=== PATIENT | male | born 1995 | race Hispanic/Latino ===

== ENCOUNTER 2019-03-11 13:37 | Emergency (ER) | payer OTHER ==
[2019-03-11 13:41] VITALS: BMI 22.2
--- NOTE | 2019-03-11 14:30 | ED PDOC ---
HPI: Chest Pain Time Seen by Provider: 03/11/19 13:54 Chief Complaint (Nursing): Palpitations Chief Complaint (Provider): palpitations History Per: Patient History/Exam Limitations: no limitations Additional Complaint(s): 23 y/o M with no significant PMH who presents with palpitations and lightheadedness. Pt states that he has been having intermittent episodes of heart fluttering over the past month that have progressed to occurring several times per day and last a few seconds. One week ago, had one episode of N/V and has felt "cloudy" and "not right" since. He saw his primary care doctor yesterday b/c of persistent symptoms and lightheadedness who performed an EKG that was unremarkable. He had blood work and awaits results but was advised to call 911 if symptoms recurred. Pt was doing well this morning when he suddenly began feeling his heart racing and pounding with associated dizziness and SOB with some chest pain. He called his friends as he felt like he would faint who called 911. Pt states that symptoms lasted for 45 minutes but have resolved. Continues to feel lightheaded. Denies N/V, diarrhea. Denies hx of thyroid disease, HTN, heart disease, family hx of arrhythmia. Continues to feel mildly SOB. Past Medical History Reviewed: Historical Data, Nursing Documentation, Vital Signs Vital Signs: Last Vital Signs Temp 98.8 F 03/11/19 13:40 Pulse 60 03/11/19 13:40 Resp 16 03/11/19 13:40 BP 133/82 03/11/19 13:40 Pulse Ox 100 03/11/19 13:40 - Medical History PMH: No Chronic Diseases - Family History Family History: States: Unknown Family Hx - Allergies Allergies/Adverse Reactions: Allergies Allergy/AdvReac Type Severity Reaction Status Date / Time No Known Allergies Allergy Verified 03/11/19 13:50 RACHEL Risk Score for UA/NSTEMI - RACHEL Risk Score Age > 64: NO 3 or more CAD Risk Factors: NO Known CAD (Stenosis greater than 50%): NO Aspirin use in past 7 days: NO Severe Angina: NO EKG ST changes greater than 0.5mm: NO Positive Cardiac Marker: NO RACHEL Score: 0 Risk %: 5% Wells Criteria for PE - Wells Criteria for Pulmonary Embolism Clinical Signs and Symptoms of DVT: No P.E is #1 Diagnosis, or Equally Likely: No Heart Rate >100: No Immobilization at least 3 days;Surgery previous 4 weeks: No Previous, objectively diagnosed PE or DVT: No Hemoptysis: No Malignancy w/treatment within 6 months, or palliative: No Total Score: 0 Review of Systems Constitutional: Negative for: Fever, Chills Cardiovascular: Positive for: Chest Pain, Palpitations, Light Headedness Respiratory: Negative for: Cough, Shortness of Breath Gastrointestinal: Negative for: Nausea, Vomiting Physical Exam - Reviewed Nursing Documentation Reviewed: Yes Vital Signs Reviewed: Yes - Physical Exam Appears: Positive for: No Acute Distress Skin: Positive for: Normal Color Eye Exam: Positive for: Normal appearance ENT: Positive for: Normal ENT Inspection Cardiovascular/Chest: Positive for: Regular Rate, Rhythm Respiratory: Positive for: Normal Breath Sounds Gastrointestinal/Abdominal: Positive for: Normal Exam Neurological/Psych: Positive for: Awake, Alert, Symmetric/Intact Strength, Oriented, Gait (steady), Cerebellar Tests (able to perform alternating finger to nose ). Negative for: Lethargic, Motor/Sensory Deficits - Laboratory Results Result Diagrams: 03/11/19 14:45 03/11/19 14:45 - ECG O2 Sat by Pulse Oximetry: 100 Medical Decision Making Medical Decision Making: CBC, CMP, TSH, Free T3 and T4 CXR PA and lateral Tele EKG BNP Trop D-dimer NS 1L IV x 1 EKG: sinus with sinus arrhythmia, HR 63, no arrhythmia noted, incomplete RBBB. CXR: no active disease (official read) Labs unremarkable. Pt had episode of recurrent palpitations with continued dizziness during ER visit but no arrhythmia noted on monitor. Repeat neuro exam remains unchanged. Telemetry showed sinus rhythm, HR 60s. Re-assessed prior to d/c home: states that his dizziness had resolved after 1L of normal saline. Ambulated to bathroom with steady gait. Stable for d/c home with return instructions given and advised to follow up with [facility] for possible Holter/event monitor. Patient and mother in agreement with plan. Disposition - Clinical Impression Clinical Impression: Palpitations - Patient ED Disposition Is Patient to be Admitted: No Counseled Patient/Family Regarding: Studies Performed, Diagnosis, Need For Followup - Disposition Referrals: Siddharth Shaffer MD [Staff Provider] - Disposition: Routine/Home Disposition Time: 18:54 Condition: STABLE Additional Instructions: Follow up with your primary care doctor for further evaluation of your symptoms. Return to ER if palpitations recur or your symptoms worsen. Instructions: Palpitations (DC) Forms: [facility] ([place]an) Print Language: SOUTH AFRICAN
[2019-03-11 14:50] LABS: BASO % 0.5 % (0.0-2.0); EOS % 0.3 % (0.0-4.0); HEMOGLOBIN 14.7 g/dL (12.0-18.0); LYMPH # 1.1 K/uL (1.0-4.3); LYMPH % 14.8 % (20.0-40.0); MEAN CORPUSCULAR HEMOGLOBIN 30.6 pg (27.0-31.0); MEAN PLATELET VOLUME 7.1 fl (7.2-11.7); MONO # 0.6 K/uL (0.0-0.8); MONO % 8.9 % (0.0-10.0); NEUT # 5.4 K/uL (1.8-7.0); NEUT % 75.5 % (50.0-75.0); RBC 4.81 Mil/uL (4.40-5.90); RED CELL DISTRIBUTION WIDTH 12.6 % (11.5-14.5); WHITE BLOOD COUNT 7.2 K/uL (4.8-10.8)
[2019-03-11 15:06] LABS: ALB/GLOB RATIO 1.5 (1.0-2.1); ALBUMIN 4.5 g/dL (3.5-5.0); ALT/SGPT 39 U/L (21-72); AST/SGOT 35 U/L (17-59); BLOOD UREA NITROGEN 21 mg/dl (9-20); CALCIUM 10.1 mg/dL (8.4-10.2); GFR NON-AFRICAN AMERICAN > 60
--- NOTE | 2019-03-11 15:12 | RAD ---
Date of service: 03/11/2019 HISTORY: shortness of breath, cough COMPARISON: No prior. TECHNIQUE: Chest PA and lateral views FINDINGS: LUNGS: No active pulmonary disease. PLEURA: No significant pleural effusion identified. No pneumothorax apparent. CARDIOVASCULAR: No aortic atherosclerotic calcification present. Normal cardiac size. No pulmonary vascular congestion. OSSEOUS STRUCTURES: No significant abnormalities. VISUALIZED UPPER ABDOMEN: Normal. OTHER FINDINGS: None. IMPRESSION: No active disease.
[2019-03-11] MEDS: Sodium Chloride 0.9% 1,000 ML IV STA ×2 (15:21→15:35)
[2019-03-11 17:54] LABS: B-TYPE NATRIURETIC PEPTIDE 40.3 pg/ml (0-450)
[2019-03-11 18:22] VITALS: BP 135/75; PULSE 56; RESP 18
[2019-03-11 18:58] VITALS: TEMP 98.6
[2019-03-11 20:15] VITALS: O2SAT 100
--- NOTE | 2019-03-12 09:05 | CARD ---
APPROVED REPORT Date of service: 03/11/2019 EKG Measurement Heart [id number] <Conclusion> Normal sinus rhythm with sinus arrhythmia Incomplete right bundle branch block Borderline ECG
== END 2019-03-11 18:54 | disposition home or self-care (01) ==
LOC: H.ER 13:37
DX: R00.2 Palpitations (principal)
CPT/HCPCS: 71046; 80053; 83880; 84439; 84443; 84481; 84484; 85025; 85378; 93005; 99285; J7030